=== PATIENT | male | born 1940 | race African-American/Black ===

== ENCOUNTER 2023-03-22 20:02 | Emergency (ER) | payer BC, SELFPAY ==
[2023-03-22 20:02] VITALS: BP 126/68; PULSE 67; RESP 18; TEMP 36.4; O2SAT 92; BMI 21.8
--- NOTE | 2023-03-22 20:28 | HMH.EDGENADL ---
Discharge Plan Disposition Patient Disposition: Xfer SNF Condition: Good Referrals Follow up/Referrals: Provider,Referral, MD [Referring] - See instructions Activity Restrictions/Add. Instructions Additional Instructions/Restrictions: Patient had creatinine of 1.5 and BUN of 33 in ED. Unknown baseline. Recommend repeat creatinine in the next [address] scan showed fluid in the small bowel without evidence of obstruction consistent with gastroenteritis or mild ileus, large amount of stool in the rectum. No other acute findings. Patient's vital signs were normal throughout ER stay. Recommend Zofran for nausea and vomiting. Consider enema if he does not have a bowel movement in the near future. Clinical Impressions Clinical Impression: Gastroenteritis, Creatinine elevation, Abdominal pain Instructions Patient Instructions: DI for Nausea -- Adult Discharge ED Provider: Jomar Andrea Adult HPI General Chief complaint: Nausea/Vomiting/Diarrhea Stated complaint: Vomiting Time Seen by Provider: 03/22/23 20:11 Mode of Arrival: Ambulatory Source of Information: Patient and Relative Limitations: No Limitations Description of Symptoms (Recalled from ER Triage Doc. by RN): pt c/o n/v since yesterday evening. pt states she has since started having head pressure not a headache. pt denies abd pain and diarrhea. History of Present Illness HPI narrative: 82-year-old male, reported dementia, care home resident presents with nausea and vomiting and reported hypotension at his nursing facility today. History obtained primarily from patient's daughter. She reports that he has had a worsening of his health since being placed in the nursing facility. Patient reports abdominal pain, points to his epigastrium as the locale. No prior abdominal surgeries per daughter. No reported fevers at home. Related Data Allergies Allergy/AdvReac Type Severity Reaction Status Date / Time No Known Allergies Allergy Verified 03/22/23 20:19 [facility] Disclaimer: The information contained in this section may have been updated after the patient was seen, as this information can be updated by other users. Social History Smoking Status: Never smoker alcohol intake: never current occupational status: retired Travel in the last 8 weeks: None ROS Obtained: Yes All systems reviewed & no additional complaints except as documented Physical Exam General General appearance: alert Head Head exam: atraumatic and normocephalic Eye Eye exam: Present normal appearance, PERRL and EOMI ENT ENT exam: Present normal oropharynx and normal external ear exam Neck Neck exam: Present normal inspection and full ROM Chest Chest inspection: Present normal inspection and symmetric chest wall rise; Absent tenderness Respiratory Respiratory exam: Present normal lung sounds bilaterally; Absent respiratory distress Cardiovascular Cardiovascular exam: Present regular rate and normal rhythm Abdominal Exam Abdominal exam: Present soft and tenderness (Epigastric); Absent distention or guarding Extremities Exam Extremities exam: Present normal inspection and other (Muscle wasting noted); Absent edema or joint swelling Back Exam Back exam: Present normal inspection; Absent tenderness Neurological Exam Neurological exam: Present alert and other (Interactive, able to answer some questions but not fully oriented. At baseline per daughter in the room); Absent motor sensory deficit Psychiatric Psychiatric exam: Present flat affect Skin Skin exam: Present warm, dry and normal color Lymphatic Lymphatic Findings: no adenopathy Medical Decision Making Medical Records Medical records reviewed: Yes I reviewed the patient's medical records. Sang Inquiry Pt receiving controlled substance: No Sang was queried for this patient: No Vital Signs: 03/22/23 20:02 03/22/23 20:52 03/22/23 23:01 Temperature 97.5 F L 98 F Temperature
--- NOTE | 2023-03-22 20:29 | CT_ITS ---
PROCEDURE INFORMATION: Exam: CT Abdomen And Pelvis With Contrast Exam date and time: 03/22/2023 9:35 PM Age: 82 years old Clinical indication: Abdominal pain; Additional info: Abd pain vomiting TECHNIQUE: Imaging protocol: Computed tomography of the abdomen and pelvis with contrast. Radiation optimization: All CT scans at this facility use at least one of these dose optimization techniques: automated exposure control; mA and/or kV adjustment per patient size (includes targeted exams where dose is matched to clinical indication); or iterative reconstruction. Contrast material: ISOVUE; Contrast volume: 75 ml; Contrast route: IV; REPORTING DATA: Count of CT and Cardiac NM exams in prior 12 months: This patient has received 0 known CTs and 0 known cardiac nuclear medicine studies in the 12 months prior to the current study. COMPARISON: No relevant prior studies available. FINDINGS: Lungs: There is some parenchymal consolidation involving the left lower lobe which could be atelectatic in nature correlation for infection is suggested. Liver: There are low-density lesions in the liver which most likely reflect a combination of cysts and/or hemangiomas. The liver is otherwise unremarkable. Gallbladder and bile ducts: Normal. No calcified stones. No ductal dilation. Pancreas: Normal. No ductal dilation. Spleen: Normal. No splenomegaly. Adrenal glands: Normal. No mass. Kidneys and ureters: There are bilateral simple appearing renal cysts. Stomach and bowel: There is mild fluid distention of small-bowel loops without a focal point of obstruction. There are scattered colonic diverticula without CT evidence for active diverticulitis. Appendix: No evidence of appendicitis. Intraperitoneal space: Unremarkable. No free air. No significant fluid collection. Vasculature: There is atherosclerotic disease of the visualized aorta and its major branch vessels. Lymph nodes: Unremarkable. No enlarged lymph nodes. Urinary bladder: Unremarkable as visualized. Reproductive: Unremarkable as visualized. Bones/joints: There is diffuse degenerative disease of the visualized osseous structures. Soft tissues: There is a right inguinal hernia containing a portion of urinary bladder. Other findings: There is a right lower pole nonobstructing 1.1 cm calculus (image 48 series 3). IMPRESSION: 1. There is mild fluid distention of small-bowel loops without a focal point of obstruction. 2. There is some parenchymal consolidation involving the left lower lobe which could be atelectatic in nature correlation for infection is suggested. COMMENTS: Consistent with the [employer]'s Incidental Findings Committee white paper (J Am Luiza Radiol 2018): Any incidental renal lesion less than 1 cm or classified as too small to characterize, or any incidental cystic renal lesion characterized as simple-appearing, is likely benign. No follow-up imaging is recommended for these lesions per consensus recommendations based on imaging criteria.
[2023-03-22 20:35] LABS: POC Glucose,Bedside 99 (70-110)
[2023-03-22 20:52] VITALS: BP 113/80; PULSE 69; RESP 18; O2SAT 100
[2023-03-22 21:05] LABS: Chloride 104 mmol/L (98-107)
[2023-03-22 21:06] LABS: Potassium 4.9 mmoL/L (3.5-5.1); Sodium 138 mmol/L (136-145)
[2023-03-22 21:07] LABS: Basophils % 0.2 % (0.1-2.0); Eosinophils # 0.2 K/mm3 (0.0-0.4); Eosinophils % 2.2 % (0.1-12.0); Hematocrit 47.6 % (42.0-52.0); Hemoglobin 15.1 g/dL (14.1-18.0); Lymphocytes # 1.4 K/mm3 (0.7-4.5); Lymphocytes % 19.6 % (10-50); Mean Corpuscular HGB Conc 31.8 g/dL (31.8-35.4); Mean Corpuscular Hemoglobin 27.2 pg (27.0-31.2); Mean Corpuscular Volume 85.6 fl (80-94); Monocytes # 0.3 K/mm3 (0.1-1.0); Monocytes % 4.6 % (1.7-9.3); Neutrophils # 5.3 K/mm3 (1.8-7.8); Neutrophils % 73.4 % (37.0-80.0); Platelet Count 187 K/mm3 (142-424); Red Blood Count 5.56 M/mm3 (4.60-6.20); White Blood Count 7.2 K/mm3 (4.8-10.8)
[2023-03-22 21:08] LABS: Alanine Aminotransferase 36 U/L (12-78); Aspartate Amino Transferase 43 U/L (17-59); Blood Urea Nitrogen 33 mg/dl (9-20); Creatinine Clearance Estimated 43 mL/min (50-200); Estimated Glomerular Filt Rate 45 ml/min (>60); GFR (African American) 54 ML/MIN (>60)
[2023-03-22 21:09] LABS: Albumin Level 3.9 g/dl (3.5-5.0); Albumin/Globulin Ratio 0.9 (1.1-1.8); Alkaline Phosphatase 75 U/L (38-126); Anion Gap 11.9 mEq/L (5-15); Bilirubin,Total 1.2 mg/dl (0.2-1.3); Calcium 9.9 mg/dl (8.4-10.2); Carbon Dioxide 27 mmol/L (22.0-30.0); Globulin 4.5 g/dL (1.3-3.2); Glucose 103 mg/dl (74-100); Lipase 81 U/L (23-300); Total Protein,Serum 8.4 g/dl (6.3-8.2)
[2023-03-22 21:21] LABS: Lactic Acid 1.2 mmol/L (0.7-2.1)
--- NOTE | 2023-03-22 21:37 | PC.NURSE ---
pt to CT
--- NOTE | 2023-03-22 21:54 | PC.NURSE ---
pt reports improvement in abd pain after medications, resting in bed, no vomiting noted, family at bedside, lights dimmed for comfort. will continie to monitor
--- NOTE | 2023-03-22 22:09 | PC.NURSE ---
pts daughter came to nurses station stated pt is grimacing and believes hes hurting, provider aware
--- NOTE | 2023-03-22 22:40 | PC.NURSE ---
report given to Ir[facility]
--- NOTE | 2023-03-22 22:41 | PC.NURSE ---
Called EMS about return transport back to [place]. Advised that the other truck was out on another emergency run and once they return they will be here to get him. GEOFFREY
[2023-03-22 23:01] VITALS: BP 123/68; PULSE 70; RESP 16; TEMP 36.6
== END 2023-03-22 23:06 ==
PROVIDERS: Emergency Provider Emergency Medicine; PCP Internal Medicine Adolescent Medicine
DX: K52.9 Noninfective gastroenteritis and colitis, unspecified (principal); R94.4 Abnormal results of kidney function studies; F03.90 Unspecified dementia, unspecified severity, without behavioral disturbance, psychotic disturbance, mood disturbance, and anxiety
CPT/HCPCS: 74177; 80053; 82962; 83605; 83690; 85025; 96361; 96374; 96375; 99285; J2405; Q9967

== ENCOUNTER → 2023-03-25 07:26 | Outpatient (CLI) | payer BC, SELFPAY ==
[2023-03-25 08:17] LABS: Basophils % 0.4 % (0.1-2.0); Eosinophils # 0.2 K/mm3 (0.0-0.4); Eosinophils % 3.6 % (0.1-12.0); Hematocrit 40.7 % (42.0-52.0); Lymphocytes # 2.2 K/mm3 (0.7-4.5); Lymphocytes % 36.7 % (10-50); Mean Corpuscular Volume 84.5 fl (80-94); Monocytes # 0.6 K/mm3 (0.1-1.0); Monocytes % 9.5 % (1.7-9.3); Neutrophils # 3.1 K/mm3 (1.8-7.8); Neutrophils % 49.9 % (37.0-80.0); Platelet Count 160 K/mm3 (142-424); Red Blood Count 4.82 M/mm3 (4.60-6.20); Red Cell Distribution Width 15.2 % (11.5-17.5); White Blood Count 6.1 K/mm3 (4.8-10.8)
[2023-03-25 10:45] LABS: Chloride 109 mmol/L (98-107)
[2023-03-25 10:46] LABS: Potassium 4.4 mmoL/L (3.5-5.1); Sodium 140 mmol/L (136-145)
[2023-03-25 10:49] LABS: Alanine Aminotransferase 25 U/L (12-78); Albumin Level 2.9 g/dl (3.5-5.0); Albumin/Globulin Ratio 0.9 (1.1-1.8); Alkaline Phosphatase 59 U/L (38-126); Anion Gap 10.4 mEq/L (5-15); Aspartate Amino Transferase 26 U/L (17-59); Bilirubin,Total 0.9 mg/dl (0.2-1.3); Blood Urea Nitrogen 29 mg/dl (9-20); Calcium 9.3 mg/dl (8.4-10.2); Carbon Dioxide 25 mmol/L (22.0-30.0); Estimated Glomerular Filt Rate 64 ml/min (>60); GFR (African American) 78 ML/MIN (>60); Globulin 3.1 g/dL (1.3-3.2); Glucose 84 mg/dl (74-100)
== END ==
PROVIDERS: PCP Internal Medicine Adolescent Medicine; Visit Provider Internal Medicine Adolescent Medicine
DX: I10 Essential (primary) hypertension (principal)
CPT/HCPCS: 80053; 85025

== ENCOUNTER → 2023-05-03 14:00 | Outpatient (CLI) | payer BC, SELFPAY ==
[2023-05-03 14:30] LABS: Microscopic, Urine URINE MICROSCOPIC (MICROSCOPIC)
[2023-05-03 14:45] LABS: Appearance,Urine CLEAR (Clear); Bilirubin,Urine Negative (Negative); Blood, Urine 2+ (Negative); Color,Urine YELLOW (Yellow); Glucose,Urine (UA) Negative (Negative); Ketones,Urine Negative (Negative); Leukocyte Esterase,Urine Negative (Negative); Nitrate,Urine Negative (Negative); PH,Urine 5.5 (5.0-8.5); Protein,Urine 1+ (Negative); Specific Gravity, Urine >= 1.030 (1.005-1.030); Urobilinogen,Urine 0.2 EU/dl (0.2)
[2023-05-03 15:22] LABS: RBC,Urine 20-50 #/hpf (0-3)
== END ==
PROVIDERS: PCP Internal Medicine Adolescent Medicine; Visit Provider Nurse Practitioner Family
DX: R41.0 Disorientation, unspecified (principal)
CPT/HCPCS: 81001

== ENCOUNTER → 2023-05-04 07:18 | Outpatient (CLI) | payer BC, SELFPAY ==
[2023-05-04 09:18] LABS: Basophils % 0.6 % (0.1-2.0); Eosinophils # 0.3 K/mm3 (0.0-0.4); Hematocrit 40.4 % (42.0-52.0); Hemoglobin 12.5 g/dL (14.1-18.0); Lymphocytes # 2.7 K/mm3 (0.7-4.5); Lymphocytes % 46.8 % (10-50); Mean Corpuscular HGB Conc 30.8 g/dL (31.8-35.4); Mean Corpuscular Hemoglobin 26.9 pg (27.0-31.2); Mean Corpuscular Volume 87.4 fl (80-94); Mean Platelet Volume 8.3 fl (7.4-10.4); Monocytes # 0.5 K/mm3 (0.1-1.0); Neutrophils # 2.3 K/mm3 (1.8-7.8); Neutrophils % 39.5 % (37.0-80.0); Platelet Count 186 K/mm3 (142-424); Red Blood Count 4.62 M/mm3 (4.60-6.20); Red Cell Distribution Width 16.4 % (11.5-17.5); White Blood Count 5.8 K/mm3 (4.8-10.8)
[2023-05-04 09:54] LABS: Anion Gap 13.9 mEq/L (5-15); Blood Urea Nitrogen 18 mg/dl (9-20); Carbon Dioxide 23 mmol/L (22.0-30.0); Chloride 106 mmol/L (98-107); Estimated Glomerular Filt Rate 64 ml/min (>60); GFR (African American) 78 ML/MIN (>60); Glucose 158 mg/dl (74-100); Potassium 3.9 mmoL/L (3.5-5.1); Sodium 139 mmol/L (136-145)
== END ==
PROVIDERS: PCP Nurse Practitioner Family; Visit Provider Nurse Practitioner Family
DX: E78.5 Hyperlipidemia, unspecified (principal); I69.354 Hemiplegia and hemiparesis following cerebral infarction affecting left non-dominant side; F03.90 Unspecified dementia, unspecified severity, without behavioral disturbance, psychotic disturbance, mood disturbance, and anxiety; I10 Essential (primary) hypertension; I69.320 Aphasia following cerebral infarction; I69.322 Dysarthria following cerebral infarction; Z95.0 Presence of cardiac pacemaker
CPT/HCPCS: 80048; 85025

== ENCOUNTER 2025-03-30 19:13 | Emergency (ER) | payer MEDICAID, SELFPAY ==
--- OUTSIDE RECORDS SUMMARY | 2025-03-26 20:00 | XMS_ITS | Continuity of Care Document ---
Author Organization [address] [place] [address] Address [address] [facility] [address] [place] [address] Phone Care Team Providers Care Podiatric Surgeon Name Role Phone Teddy Ckoer NP Unavailable Unavailable Allergies, Adverse Reactions, Alerts Substance Reaction Status Criticality No Known Allergies Active No Inform ation Medications Medication Instructions Dosage Effective Dates (start - stop) Status Comments losartan 25 mg tablet - Acti ve acetaminophen 500 mg tablet - Active Double Antibiotic (bacitrcn zn) 500 unit-10,000 unit/gram top ointment - Active Ear Wax Removal Drops 6.5 % - Active Triple Antibiotic 3.5 mg-400 unit-5,000 unit/gram topical ointment - Active carvedilol 3.125 mg tablet - Active amlodipine 10 mg tablet - Ac tive aspirin 81 mg chewable tablet - Active atorvastatin 80 mg tablet - Active Eliquis 5 mg tablet - Active cholecalciferol (vitamin D3) 50 mcg (2,000 unit) tablet - Active lisinopril 10 mg tablet - Ac tive yzhqyltymrph-wlskgcst-txkp fumarate 7.5 mg-folic acid 400 mcg tablet - Active dextromethorphan-guaifenesin 10 mg-100 mg/5 mL oral syrup - Active ondansetron HCl 4 mg tablet - Active clopidogrel 75 mg tablet - A ctive Procedures Procedure Date Trim normal nail, any number Debride mycotic nails 6 or more 025 COMPRE OPH EXAM EST PT 1/> FUNDUS PHOTOGRAPHY REMOVE IMPACTED EAR WAX DEBRIDE NAIL 6 OR MORE SBSQ NF CARE MODERATE MDM 30 Debride mycotic, thick nails 6 or more J REMOVE IMPACTED EAR WAX PARING/CUTG B9 HYPRKER LES 1 DEBRIDE NAIL 6 OR MORE FULL FIELD ERG W/I&R REMOVE IMPACTED EAR WAX PARING/CUTG B9 HYPRKER LES 1 DEBRIDE NAIL 6 OR MORE ECHO EXAM OF EYE THICKNESS SBSQ NF CARE MODERATE MDM 30 PARING/CUTG B9 HYPRKER LES 1 DEBRIDE NAIL 6 OR MORE COMPREHENSIVE HEARING TEST REMOVE IMPACTED EAR WAX FULL FIELD ERG W/I&R FUNDUS PHOTOGRAPHY EYE EXAM NEW PATIENT TRIM SKIN LESION DEBRIDE NAIL 6 OR MORE Advance Directives Directive Yes / No Effective Date File Name No Information Encounters Encounter Description Practice Location Reason(s) For Visit Diagnoses Date Provider Providers Copied on Encounter [address] [place] [address], [address], [id number], [place] tel:[phone] [place] Nail dystrophyOnycho gryphosisXerosi s cutisOther specified peripheral vascular diseases 5 [place], [place]. [address] [place] [address], [address] [facility] [address], [place], [id number], [place] tel:[phone] [place] Glaucoma, followup (chief complaint) Glaucomatous optic atrophy, bilateralPresen ce of intraocular lens 5 [place] Waters. , [place]. Referring Provider: Ruben Oropeza. [facility], [address] [place] [address], [place], [place], [id number], tel:[phone] [place] ear care exam (chief complaint) Impacted cerumen, bilateral Apr-2 5 [facility]. , [place]. Referring Provider: Ruben Oropeza. [facility], [address] [place] [address], [place], [place], [id number], [place] tel:[phone] [place] Other specified peripheral vascular diseasesNail dystrophyOnycho gryphosisOther abnormalities of gait and mobility 5 [facility] , [place]. [facility], [address] [place] [address], [place], [place], [id number], tel:[phone] [place] No Information 5 [facility]. , [place]. [facility] NF CARE MODERATE MDM 30 [facility], [address] [place] [address], [place], [place], [id number], [place] tel:[phone] [place] Medical eye problem (chief complaint) Glaucomatous optic atrophy, bilateral Apr-0 5 Sarmad Zhang. , [place]. Referring Provider: Ruben Oropeza. [facility], [address] [place] [address], [place], [place], [id number], [place] tel:[phone] [place] Other specified peripheral vascular diseasesOnychog ryphosisNail dystrophyXerosi s cutis 5 [facility] , [place]. [address] [address], [place], [place], [id number], [place] tel:[phone] [place] ear care exam (chief complaint) Impacted cerumen, bilateral Sep-0 4 [facility]. , [place]. Referring Provider: Ruben Oropeza. [address] [address], [place], [place], [id number], [place] tel:[phone] [place] Tinea unguiumOther specified peripheral vascular diseasesCorns and callosities 4 Zion Benjamin. [address] [facility], [address], [place], [address], [place]. [address] [place] [address], [address] [place] [address], [place], [place], [id number], [place] tel:[phone] [place] ERG visit for GLC OU (chief complaint) Glaucomatous optic atrophy, bilateral 4 Sonia Campbell. [address] [facility], [address], [place], [address], [place]. Referring Provider: Ruben Oropeza. [address] [place] [address], [address] [place] [address], [place], [place], [id number], tel:[phone] [place] ear care exam (chief complaint) Impacted cerumen, bilateral 4 Laina Sanchez. , [place]. Referring Provider: Ruben Oropeza. [address] [place] [address], [address] [place] [address], [place], [place], [id number], [place] tel:[phone] [place] Other specified peripheral vascular diseasesTinea unguiumCorns and callosities 4 Zion Plata [address] [facility], [address], [place], [address], [place]. Referring Provider: Ruben [facility]ropeza. [facility] MDM [address] [place] [address], [address] [place] [address], [place], [place], [id number], [place] tel:[phone] [place] Glaucoma, pressure check (chief complaint) Primary open-angle glaucoma, bilateral, indeterminate stageGlaucomato us optic atrophy, bilateral 4 Sarmad Zhang. , [place]. Referring Provider: Ruben Oropeza. [address] [place] [address], [address] [place] [address], [place], [place], [id number], [place] tel:[phone] [place] Corns and callositiesOthe r specified peripheral vascular diseasesTinea unguium 4 Zion Benjamin. [address] [facility], [address], [place], [address], [place]. Referring Provider: Ruben Oropeza. [facility], [address] [place] [address], [place], [place], [id number], [place] tel:[phone] [place] Sensorineural hearing loss, bilateral 4 Joann Barn[place], [place]. Referring Provider: Ruben Oropeza. [facility], [address] [place], [place] [address], [place], [place], [id number], [place] tel:[phone] [place] impacted cerumen (chief complaint) Impacted cerumen, bilateral 3 [place] nirmala Edie. [address] [facility], [address], [place], [address], [place]. Referring Provider: Ruben Oropeza. [facility], [address] [place] [address], [place], [place], [id number], [place] tel:[phone] [place] ERG visit for GLC OU (chief complaint) Glaucomatous optic atrophy, bilateral 3 Sonia Campbell. [address] [facility], [address], [place], [address], [place]. Referring Provider: Ruben Oropeza. [facility], [address] [place], [place] [address], [place], [place], [id number], tel:[phone] [place] Decreased vision (chief complaint) Primary open-angle glaucoma, bilateral, indeterminate stage Oct- 3 Sonia Campbell. [address] [facility], [address], [place], [address], [place]. Referring Provider: Ruben Oropeza. [facility], [address] [place] [address], [place], [place], [id number], [place] tel:[phone] [place] Tinea unguiumCorns and callositiesOthe r specified peripheral vascular diseases Sep- 3 Zion Benjamin. [address] [facility], [address], [place], [address], [place]. [facility], [address] [place], [place] [address], [place], [place], [id number], [place] tel:[phone] [place] No Information 3 Zion Benjamin. [address] [facility], [address], [place], [address], [place]. Family History Family Member Type Diagnosis Age At Onset No Information Payers Payer name Insurance type Covered democrat ID Authoriza tion(s) Medicaid [facility] [id number] Social History Type Description Quantity Date Captured Comments Alcohol Use Details Unknown Caffeine Use Details Unknown Tobacco Use Status No Information Smoking Status No Information Sex Male Chief Complaint And Reason For Visit No Information Reason For Referral Reason For Referral No Information Plan Of Treatment Date Type Action Status Appointment Herbie Hanson BOOKED Patient Education Reduced Vision: Care In structions completed Patient Education Open-Angle Glaucoma: Ca re Instructions completed Patient Education Earwax Blockage: Care I nstructions completed History Of Present Illness Encounter Date Complaint History Of Prese nt Illness Glaucoma, followup OU, NLP, edna es eye pain Medical eye problem The 83 year old patient presents for evaluation of Medical eye problem in the right eye and left eye. It occurs always. The onset was gradual. The symptom is constant. ERG due to glaucomatous optic atrophy OU. ERG visit for GLC OU ERG visit f or GLC OU Glaucoma, pressure check The 82 year old patient presents for evaluation of Glaucoma, pressure check in the right eye and left eye. It occurs always. It affects both near and far vision. The symptom is constant. Patient has no light perception in both eyes. Reports no eye pain. ERG visit for GLC OU ERG visit f or GLC OU Decreased vision The 82 year old patient presents for evaluation of Decreased vision in the right eye and left eye. It occurs all the time. The onset was gradual. It affects both near and far vision. Functional Status Date Functional Assessmen t No Information Instructions Date Instruction Additional Infor mation PT presents with leg s wrapped for compression, stating and presenting with moderate benefit from compliance. Pt to continue utilizing leg wraps for continued benefit. Will follow up in 2-3 months. Related to Other specified peripheral vascular diseases Pt states she has be en compliant with nursing care applying salve and has noted moderate improvement. PT instructed to continue compliance with application of moisturizers from nursing. Will reassess in 2-3 months. 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 Patient tolerated procedure well. Related to Nail dystrophy All of the documente d thickened nails (which includes those nails 2 mm or more in thickness, and possible mycotic component to the nails) were debrided in both length and thickness using both a nail nipper and an electric rotary gear grinder in an atraumatic fashion as needed ; this was performed in an attempt to prevent pain and reduce risk of infection. Alcohol applied to the digits afterwards. PT tolerated procedure well. Related to Onychogryphosis Follow up - Return i n 4-6 months for dilated fundus exam. Impression/Plan - Implant OU pinky ar. Related to Presence of intraocular lens Impression/Plan - Ph otos taken of .85 C/D with pallor. IOP 22/21 with tube in A/C OD at 10 oclock. 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 AU cleared. Follow up for reevaluation for chronic cerumen impaction. F/u with Aud as scheduled. Related to Impacted cerumen, bilateral PT instructed to con tinue use of DME equipment for safety, mobility, and reducing risk of falls/injury. Will continue to monitor. Pt denies recent falls in the past 3 months. Related to Other abnormalities of gait and mobility All of the documente d thickened nails (which includes those nails 2 mm or more in thickness, and possible mycotic component to the nails) were debrided in both length and thickness using both a nail nipper and an electric rotary gear grinder in an atraumatic fashion; this was performed in an attempt to prevent pain and reduce risk of infection. Alcohol applied to the digits afterwards. Related to Onychogryphosis All documented dystr ophic nails were reduced in length as needed to prevent pain and other symptoms. Related to Nail dystrophy Discussed using comp ression stockings to assist in localize swelling and venous return, and the roasterman benefits of using compression stockings. Reinforced the importance of proper adherence to using the melvin hose, and compression stockings. Will continue to monitor. Related to Other specified peripheral vascular diseases Return in 6-9 months for ERG PHN R. 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 Related to Nail dystrophy All documented thick ened nails were debrided using a rotary tool and nail nipper. Related to Onychogryphosis Melvin Hose ordered to be placed on in the am and taken off in the pm. order printed, signed, and sent to facility. Will continue to monitor. Related to Other specified peripheral vascular diseases Performed cerumen re moval as per protocol. Right ear cleared. left ear cleared partially. Would recommend (If no history of TM rupture, ear trauma, or ear surgeries and with PCP approval) Debrox 10 gtts bid x 4 days in the left ear then a gentle warm water rinse on the 5th day or defer to PCP for treatment of choice prior to our next visit, Attempt Re-treat in 1-3 months Related to Impacted cerumen, bilateral All of the calluses were debrided/pared to prevent further tissue breakdown and pain. Related to Corns and callosities Toenails 1-5 b/l wer e debrided in length and thickness without incident. Follow up in 2-3 months. Related to Tinea unguium Impression/Plan - No rmal ERG OU. Continue GLC drops. Stable OD, better scan OS. Repeat in 6 months to help watch for retinal changes. 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 AU cleared. Follow up for reevaluation for chronic cerumen impaction. Related to Impacted cerumen, bilateral All of the calluses were debrided/pared to prevent further tissue breakdown and pain. Related to Corns and callosities Toenails 1-5 b/l wer e debrided in length and thickness without incident. Follow up in 2-3 months. Related to Tinea unguium Return in 6-9 months for dilated fundus exam. Related to Primary open-angle glaucoma, bilateral, indeterminate stage Impression/Plan - Stable; monito r. 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 IOP is up a little today OS; monitor. Related to Primary open-angle glaucoma, bilateral, indeterminate stage Follow up - Return i n 6-9 months for dilated fundus exam. Related to Primary open-angle glaucoma, bilateral, indeterminate stage Toenails 1-5 b/l wer e debrided in length and thickness without incident. Follow up in 2-3 months. Related to Tinea unguium All of the calluses were debrided/pared to prevent further tissue breakdown and pain. Related to Corns and callosities The patient's functi onal hearing ability was very good in both ears at comfortable loudness levels. Hearing aids were not recommended. Related to Sensorineural hearing loss, bilateral Reattempt in 6-9 mon ths or sooner if needed. Related to Impacted cerumen, bilateral Impression/Plan - No rmal ERG OD, abnormal ERG OS. Poor scan OS. 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 Pt is already NLP. EYes aren't painful. Watch IOP closely. Related to Primary open-angle glaucoma, bilateral, indeterminate stage All of the calluses were debrided/pared to prevent further tissue breakdown and pain. Related to Corns and callosities Toenails 1-5 b/l wer e debrided in length and thickness without incident. Follow up in 2-3 months. Related to Tinea unguium Assessments Type Assessment Date assessment Nail dystrophy assessment Onychogryphosis assessment Xerosis cutis assessment Other specified peripheral vascu lar diseases Patient Care Teams Name Effective Dates (start - stop) Status Members No Information
[2025-03-30] VITALS (7 sets, daily range): BP systolic 137–150; BP diastolic 70–122; PULSE 65–112; RESP 16–18; TEMP 36.6–36.7; O2SAT 78–100; BMI 24.4
--- OUTSIDE RECORDS SUMMARY | 2025-03-30 19:33 | XMS_ITS | Clinical Summary ---
Author Organization [facility] Address [address] [place] [address] Care Team Providers Care Train Reservation Clerk Name Role Phone Ruben Oropeza MD Primary Care Provider + [phone] Allergies No known active allergies Medications Cholecalciferol (Vitamin D3) 50 MCG (1999) tablet Take 1 tablet by mouth Daily. OTC Active multivitamin with minerals tablet tablet Take 1 tablet by mouth Daily. Active aspirin 81 MG chewable tablet Chew 1 tablet Daily. 3 Active atorvastatin (LIPITOR) 80 MG tablet Take 1 tablet by mouth Every Night. 90 tablet 3 Active lisinopril (PRINIVIL,ZESTR IL) 10 MG tablet Take 1 tablet by mouth Daily. 3 Active carvedilol (COREG) 3.125 MG tablet Take 1 tablet by mouth Every 12 (Twelve) Hours. 3 Active amLODIPine (NORVASC) 10 MG tablet Take 1 tablet by mouth Daily. 3 Active acetaminophen (TYLENOL) 500 MG tablet Take 1 tablet by mouth Every 6 (Six) Hours As Needed for Mild Pain or Fever. Active apixaban (ELIQUIS) 5 MG tablet tablet Take 1 tablet by mouth 2 (Two) Times a Day. 3 Active dextromethorpha n-guaifenesin (ROBITUSSIN-DM) 10-100 MG/5ML syrup Take 5 mL by mouth Every 12 (Twelve) Hours. 3 Active tuberculin (Tubersol) 5 UNIT/0.1ML injection Inject into the appropriate area of the skin as directed by provider 1 (One) Time. Active Active Problems Problem Noted Date Diagnosed Date Presence of cardiac pacemaker 03/03/2023 Overview (03/03/2023): Medtronic Micra leadless, placed in [place]. Stroke 02/03/2023 Acute left-sided weakness 02/02/2023 Elevated troponin 02/02/2023 Bacterial UTI 09/13/2022 Sepsis 09/13/2022 Elevated lactic acid level 09/13/2022 Dementia 09/13/2022 Hypertension Encounters Date Type Department Care Team Description 03/05/2025 Telephone [facility] [address] [facility] [address] [place] [address] Paolo Huber MD 01/22/2025 Telephone [facility] [address] [facility] [address] [place] [address] Paolo Huber MD Remote Device Check from Last 3 Months Family History Medical History Relation Name Comments No Known Problems Mother Hypertension Other Relation Name Status Comments Father Mother Other Social History Tobacco Use Types Packs/Day Years Used Date Smoking Tobacco: Never Passive Smoke Exposure: Never Smokeless Tobacco: Never Tobacco Cessation:Counseling Given: Not Answered Alcohol Use Standard Drinks/Week Comments Never 0 (1 standard drink = 0.6 oz pur e alcohol) AUDIT-C Answer Date Recorded Q1: How often do you have a drink containing alc ohol? Patient declined 02/15/2023 Q2: How many drinks containi ng alcohol do you have on a typical day when you are drinking? Patient declined 02/15/2023 Q3: How often do you have si x or more drinks on one occasion? Patient declined 02/15/2023 Overall Financial Resource Strain (CARDIA) Answe r Date Recorded How hard is it for you to pa y for the very basics like food, housing, medical care, and heating? Patient declined 02/15/2023 PHQ-2 Answer Date Recorded Retired PHQ-9: Brief Depression Severity Measure Score 0 02/15/2023 Exercise Vital Sign Answer Date Recorde d On average, how many days pe r week do you engage in moderate to strenuous exercise (like a brisk walk)? Patient declined On average, how many minutes do you engage in exercise at this level? Patient declined 02/15/2023 Hunger Vital Sign Answer Date Recorded Within the past 12 months, y ou worried that your food would run out before you got the money to buy more. Patient declined Within the past 12 months, t he food you bought just didn't last and you didn't have money to get more. Patient declined 07/2023 PRAPARE - Transportation Answer Date Re corded In the past 12 months, has l ack of transportation kept you from medical appointments or from getting medications? Patient declined 02/15/2023 In the past 12 months, has l ack of transportation kept you from meetings, work, or from getting things needed for daily living? Patient declined 02/15/2023 Abuse Screen Answer Date Recorded Unsafe at Home or Work/School Not on file Feels Threatened by Someone? Not on file 07/2024 Does Anyone Keep You from Co ntacting Others or Doint Things Outside the Home? Not on file 02/16/2024 Physical Sign of Abuse Present Not on file 0 02/16/2024 Housing Stability Answer Date Recorded Current Living Arrangements Not on file 02/04 Potentially Unsafe Housing Conditions Not on kassy e 02/16/2024 Family and Community Support Answer Shay e Recorded Help with Day-to-Day Activities Not on file 02/16/2024 Lonely or Isolated Not on file 02/16/2024 Employment Answer Date Recorded Do you want help finding or keeping work or a karla b? Not on file 02/16/2024 Disabilities Answer Date Recorded Concentrating, Remembering, or Making Decisions Difficulty Not on file 02/16/2024 Doing Errands Independently Difficulty Not on fi le 02/16/2024 Education Answer Date Recorded Help with school or training? Not on file Preferred Language Not on file 02/16/2024 PHQ-2 Answer Date Recorded Retired Little Interest or P elise in Doing Things 98-->patient unable to answer 09/15/2023 Sex and Gender Information Value Date Recorded Sex Assigned at Not on file Legal Sex Male 8:33 AM EST Gender Identity Not on file Sexual Orientation Not on file Last Filed Vital Signs Vital Sign Reading Time Taken Comments Blood Pressure 110/60 02/15/2024 1:20 PM EDT Pulse 60 02/15/2024 1:20 PM EDT Temperature 36.9 C (98.4 F) 09/15/2023 9:57 AM EST Respiratory Rate 17 02/28/2023 11:02 AM EDT Oxygen Saturation 98% 02/15/2024 1:20 PM EDT Inhaled Oxygen Concentration - - Weight 78.9 kg (174 lb) 02/15/2024 1:20 PM EDT Height 195.6 cm (6' 5.01 ) 02/15/2024 1:20 PM ED T Body Mass Index 20.63 02/15/2024 1:20 PM EDT Plan of Treatment Health Maintenance Due Date Last Done Comments TDAP/TD VACCINES (1 - Tdap) 1961 Pneumococcal Vaccine 50+ (1 of 1 - PCV) 1992 ZOSTER VACCINE (1 of 2) 1992 RSV Vaccine - Adults (1 - 1-dose 75+ series) 8 ANNUAL PHYSICAL 09/17/2022 COVID-19 Vaccine ( - season) 2024 INFLUENZA VACCINE 05/07/2025 Procedures Procedure Name Priority Date/Time Associated Diagnosis Comments REMOTE DEVICE CHECK 01/22/2025 1 0:25 AM EDT from Last 3 Months Results * Remote Device Check (01/22/2025 10:25 AM EDT) Date Time Interrogation Session [id number] [facility] Type Interrogation Session Remote [facility] Implantable Pulse Generator Machine Candle Molder Medtronic [facility] Implantable Pulse Generator Type IPG [facility] Implantable Pulse Generator Model Micra AV [id number] [facility] Implantable Pulse Generator Serial Number [id number] [facility] Implantable Pulse Generator Implant Date 20201023 [facility] Battery Remaining Longevity 71.0 mo [facility] Battery Voltage 2.960 [facility] Battery AMBULATORY CARE COORDINATOR Trigger 2.558 [facility] Battery Status OK [facility] Lead Channel RV Sensing Intrinsic Amplitude 4.500 [facility] Lead Channel Setting RV Sensing Sensitivity 2.00 [facility] Lead Channel RV Impedance Value 510 [facility] Lead Channel RV Pacing Threshold Amplitude 0.750 [facility] Lead Channel RV Pacing Threshold Pulse Width 0.2 [facility] Lead Channel RV Measurements Date and Time [id number] [facility] Lead Channel Setting RV Pacing Amplitude 1.250 [facility] Lead Channel Setting RV Pacing Pulse Width 0.2 [facility] David Setting Mode (NBG Code) VDD [facility] David Setting Lower Rate Limit 50 [facility] David Setting Maximum Tracking Rate 105 [facility] David Setting Maximum Sensor Rate 120 [facility] David Setting NICK Delay 20 [facility] Lead Channel Setting RV Sensing Polarity Bipolar [facility] Lead Channel Setting RV Pacing Polarity Bipolar [facility] Lead Channel RV Pacing Threshold Polarity Bipolar [facility] 01/22/2025 10:2 5 AM EDT Paolo Huber MD CV IMPLANTABLE CARDIAC DEVICE Final Result Performing Organization Address City/State/[facility] Co de Phone Number [facility] from Last 3 Months Insurance [place]ICAID [place] Advance Directives * No CPR (Do Not Attempt to Resuscitate) (Latest Code Status on File) Date Activated Date Inactivated Comments 02/02/2023 9:14 PM 02/17/2023 11:40 AM Question Answer Comments Code Status (Patient has no pulse and is not breathing): No CPR (Do Not Attempt to Resuscitate) Medical Interventions (Patie nt has pulse or is breathing): Limited Support Medical Intervention Limits: NO intubation (DNI) Comments: discussed with marisol noble as patient lacks capacity Level Of Support Discussed With: Next of Kin (If No Surrogate) * CPR (Attempt to Resuscitate) Date Activated Date Inactivated Comments 09/13/2022 1:23 PM 09/17/2022 12:57 PM Question Answer Comments Code Status (Patient has no pulse and is not breathing): CPR (Attempt to Resuscitate) Medical Interventions (Patie nt has pulse or is breathing): Full Support Care Teams Train Reservation Clerk Relationship Specialty Start Date End Date Ruben Oropeza MD [facility] [address] [place] [address] PCP - General Adolescent Medicine 04/20/23
--- OUTSIDE RECORDS SUMMARY | 2025-03-30 19:33 | XMS_ITS | Encounter Summary ---
[facility] Address [address] [place] [id number] Care Team Providers Care Payment Processor Name Role Phone Ruben Oropeza MD Primary Care Provider [phone] Encounter Details Date Type Department Care Team (Late st Contact Info) Description 03/05/2025 Telephone [facility] [address] [facility] [address] [place] [address] Paolo Huber MD [address] [facility] [address] [place] [address] Social History Tobacco Use Types Packs/Day Years Used Date Smoking Tobacco: Never Passive Smoke Exposure: Never Smokeless Tobacco: Never Alcohol Use Standard Drinks/Week Comments Never 0 [...] on file Sexual Orientation Not on file documented as of this encounter Miscellaneous Notes * Telephone Encounter - Guillermo Fernández RN - 03/05/2025 7:53 AM EDT No recent labs since 2022 documented in this encounter Plan of Treatment Not on file documented as of this encounter Visit Diagnoses Not on filedocumented in this encounter Care Teams Payment Processor Relationship Specialty Start Date End Date Ruben Oropeza MD [facility] [address] [address] PCP - General Adolescent Medicine 04/20/23 documented as of this encounter
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
--- NOTE | 2025-03-30 21:39 | PC.NURSE ---
tried to call report to [facility] to give report. no one answered. Voicemail left to call back. will try to call report again.
--- NOTE | 2025-03-30 21:59 | PC.NURSE ---
attempted to call report again. no answer
--- NOTE | 2025-03-30 22:35 | PC.NURSE ---
2211- report callled to nursing facility.
== END 2025-03-30 23:15 | disposition home or self-care (01) ==
PROVIDERS: Emergency Provider Student in an Organized Health Care Education/Training Program
DX: S09.90XA Unspecified injury of head, initial encounter (principal); Z79.01 Long term (current) use of anticoagulants; W05.0XXA Fall from non-moving wheelchair, initial encounter
CPT/HCPCS: 70450; 72125; 99284